=== PATIENT | male | born 1980 | race African-American/Black ===

== ENCOUNTER → 2019-04-27 | Emergency (ER) | payer SELFPAY ==
[~2019-04-27] VITALS: Ht 175.3 cm; Wt 77.1 kg
[~2019-04-27] MED LIST: AUGMENTIN 875-1 EAC1 ORAL; Augmentin 875mg Tab ORAL ONE; Bacitracin Oint UD TOPIC ONE; NEOSPORIN OINT30 GM TOPIC
--- NOTE | 2019-04-27 15:31 | NUR ---
ED Nurse Note: Patient walked into ED c/o laceration on left index finger that happened 3 days ago while opening a can. Patient wrapped it in gauze thinking it would heal but when he looked at it today, he saw that the wound was still open. Patient AxO x 4, no s/s of acute distress.
[2019-04-27 15:32] VITALS: BP 148/89
--- NOTE | 2019-04-27 15:46 | Emergency Room Report ---
History of Present Illness General Chief Complaint: Laceration Source: Patient Present Illness HPI Patient is a 38-year-old male denies any significant past medical history who presents to the ER status post laceration to his left index finger. Patient states that he is cut his finger on a metal can 2 days ago. He states his last tetanus was less than 5 years ago. Patient states that he thought it would just heal on its own so he wrapped in a bandage but presents here today. He denies any fever or chills. He states that he came in because there was still some occasional bleeding. Patient is left-hand dominant. He denies any foreign bodies being able to be in it since he cut it on a can. Allergies: Coded Allergies: No Known Allergies (Unverified , 04/27/19) Patient History Past Medical History: none Past Surgical History: none Social History: Reports: alcohol use Nursing Documentation-[facility] Past Medical History: No Stated History Review of Systems All Other Systems: negative except mentioned in HPI Physical Exam Vital Signs Date Time Temp Pulse Resp B/P (MAP) Pulse Ox O2 Delivery O2 Flow Rate FiO2 04/27/19 15:24 98.2 77 20 150/92 (111) 98 Room Air Sp02 EP Interpretation: reviewed, normal General Appearance: no apparent distress, alert, GCS 15, non-toxic Head: normocephalic, atraumatic Eyes: bilateral eye normal inspection, bilateral eye PERRL ENT: hearing grossly normal, normal pharynx, no angioedema, normal voice Neck: full range of motion, supple/symm/no masses Respiratory: chest non-tender, lungs clear, normal breath sounds, speaking full sentences Cardiovascular #1: regular rate, rhythm, no edema Cardiovascular #2: 2+ carotid (R), 2+ carotid (L), 2+ radial (R), 2+ radial (L) , 2+ dorsalis pedis (R), 2+ dorsalis pedis (L) Gastrointestinal: normal bowel sounds, non tender, soft, non-distended, no guarding, no rebound Rectal: deferred Musculoskeletal: normal range of motion, other - Poorly healing laceration along left index finger PIP not to deep no tendon involvement normal range of motion immediate cap refill Neurologic: alert, motor strength/tone normal, oriented x3, sensory intact, responsive, speech normal Psychiatric: judgement/insight normal, memory normal, mood/affect normal, no suicidal/homicidal ideation Lymphatic: no adenopathy Medical Decision Making Diagnostic Impression: Primary Impression: Laceration ER Course Laceration is 2 days old and therefore not sutured due to risk of infection. Wound has been cleaned and irrigated with normal saline power wash. Steri- Strips placed to help approximate the laceration. Patient placed in a finger splint. Patient started on Augmentin to prevent any infection as well as topical antibiotics. Patient's last tetanus is less than 5 years ago and does not need to be updated. After discussing risks and benefits of further diagnostics, treatment plans, as well as indications for and risks of admission , the patient is agreeable to being discharged home. I have explained that their evaluation and treatment in the emergency department today is an important step towards them achieving better health but that their evaluation today is not intended to replace further evaluation and treatment by a physician in their local clinic. I have explained that while the current findings suggest no immediate life threatening emergency they will require further evaluation and treatment by a physician of their choice in their area. They understand that it will be necessary for them to review the final reports of their ED visit with their clinic physician. We have reviewed indications for return to the Emergency Department. I have explained that additional time may need to pass and/or additional testing as an outpatient may be necessary before a definitive diagnosis can be made. They tell me they are willing to follow up as instructed within the timeframe I recommend. They appear to understand what we discussed. Additionally they understand that if they are unable to be seen by an outpatient physician they are welcome, and in fact should, return to the Emergency Department for a repeat evaluation. The patient is stable at time of discharge. Last Vital Signs Date Time Temp Pulse Resp B/P (MAP) Pulse Ox O2 Delivery O2 Flow Rate FiO2 04/27/19 15:32 98.2 78 20 148/89 98 Room Air Disposition: HOME, SELF-CARE Condition: Stable Scripts Neomycin/Polymyxin/Bacitracin* (Triple Antibiotic Ointment*) 28 Gm Oint...g. 30 GM TOPIC DAILY for 10 Days, #1 GM Apply a thin film (amount equal to the surface area of the fingertip) to the affected area daily. Prov: Paige Thompson M.D. 04/27/19 Amoxicillin/Potassium Clav 875-125* (AUGMENTIN 875-125 TABLET*) 1 Each Tablet 1 TAB ORAL TWICE A DAY, #20 TAB Prov: Paige Thompson M.D. 04/27/19 Referrals: [facility] Patient Instructions: Nonsutured Laceration Care Additional Instructions: Patient discharged in stable improved condition with outpatient follow-up and strict return precautions Paige Thompson M.D. Apr 27, 2019 15:46
== END | disposition home or self-care (01) ==
LOC: EMR 15:40
DX: S61.211A Laceration without foreign body of left index finger without damage to nail, initial encounter (principal); W26.9XXA Contact with unspecified sharp object(s), initial encounter; Y92.9 Unspecified place or not applicable
CPT/HCPCS: 29130; 99282